=== PATIENT | female | born 1960 | race Caucasian/White ===

== ENCOUNTER 2023-09-07 15:05 | Emergency (ER) | payer BC, SELFPAY ==
[2023-09-07 15:06] VITALS: BMI 32.9
[2023-09-07 15:21] VITALS: BP 152/126
[2023-09-07] MEDS: DECADRON 10 MG PO (15:34)
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
[2023-09-07 16:00] VITALS: BP 147/110; BP 158/120
[2023-09-07 17:00] VITALS: BP 136/71; BP 145/107
== END 2023-09-07 17:21 | disposition home or self-care (01) ==
LOC: EMR 15:05
PROVIDERS: EMERGENCY PHYSICIAN Emergency Medicine; FAMILY PHYSICIAN Internal Medicine
DX: T63.461A Toxic effect of venom of wasps, accidental (unintentional), initial encounter (principal); T78.2XXA Anaphylactic shock, unspecified, initial encounter; X58.XXXA Exposure to other specified factors, initial encounter
CPT/HCPCS: 99283; 93005

== ENCOUNTER → 2024-05-14 08:00 | Outpatient (REF) | payer OTHER, SELFPAY | LOC: MRI 3T 08:00 | PROVIDERS: ATTENDING PHYSICIAN Specialist; FAMILY PHYSICIAN Student in an Organized Health Care Education/Training Program | DX: M25.562 Pain in left knee (principal) | CPT/HCPCS: 73721 ==

== ENCOUNTER 2024-10-07 20:12 | Emergency (ER) | payer OTHER, SELFPAY ==
[2024-10-07 20:14] VITALS: BP 174/97
[2024-10-07 20:39] VITALS: BMI 30.9
[2024-10-07 20:49] VITALS: BP 144/74
[2024-10-07 21:00] VITALS: BP 154/78
--- NOTE | 2024-10-07 21:03 | ED.GENMED ---
History of Present Illness
General
Chief Complaint: Insect Sting
Source: patient
Exam Limitations: none
Time Seen by Provider: 10/07/24 20:53
History of Present Illness
History of Present Illness:
See MDM
Past History
Past History
ED Past Medical History: None
ED Past Surgical History: Gynecological
Social History
Tobacco: Non-smoker
Alcohol: Occasional
Personal:
Living: with family
Employment: Retired
Phy Exam
Physical Exam
Physical Exam:
See MDM
Course
Orders/Labs/Results
Orders:
Orders
10/07/24 21:02
Dexamethasone Pf [Decadron] 10 mg PO NOW STA
Famotidine [Pepcid] 20 mg PO NOW STA
Vital Signs
Initial and Last Documented VS:
Initial Vital Signs
Temp Pulse Resp BP Pulse Ox
98.5 F 80 18 174/97 96
10/07/24 20:14 10/07/24 20:14 10/07/24 20:14 10/07/24 20:14 10/07/24 20:14
Last Documented Vital Signs
Temp Pulse Resp BP Pulse Ox
98.5 F 79 16 144/74 97
10/07/24 20:14 10/07/24 20:49 10/07/24 20:49 10/07/24 20:49 10/07/24 20:49
MDM/Problems Addressed
Differential Diagnosis Includes:
Note:
CHIEF COMPLAINT(S)
Sting by Yellow Jacket with concern of allergic reaction.
HISTORY OF PRESENT ILLNESS
The patient is a 64-year-old female who was stung by a Yellow Jacket at 7:30 PM. She reports that the sting caused immediate distress, recalling a past episode of anaphylaxis from a similar incident involving multiple stings. The current sting site
is swollen, but she denies any generalized widespread allergic reactions at this time, such as swelling of the lips or difficulty breathing. The patient did not use her EpiPen during this incident but has taken Benadryl. She describes the sting site
as swollen but not alarming regarding other systemic symptoms. Ida educated the patient about the timing of severe allergic reactions, typically occurring within 30 minutes post exposure, and reassured her about the absence of such a reaction
currently. The patient expressed an understanding of the dangers of re-exposure and the concept of biphasic allergic reactions, which can occur within 24 hours. No stinger was seen upon examination as it was confirmed to be a Yellow Jacket sting
rather than a honeybee.
PHYSICAL EXAM
General: Alert, no acute distress.
Skin: Warm, dry. No hives
Head: Normocephalic, atraumatic
Neck: Appears supple, trachea midline.
Eyes, Ears, Nose, Mouth, and Throat: Oral mucosa moist. Mild edema to left upper lip. Posterior pharynx clear
Cardiovascular: No signs of cyanosis
Respiratory: Respirations are non-labored.
Abdomen: Non-distended
Musculoskeletal: No deformities
Neurological: No focal neurological deficit observed.
Psychiatric: Cooperative, appropriate mood and affect.
PLAN
1. Administer oral Decadron (dexamethasone) to manage inflammation and prevent delayed allergic response.
2. Administer oral Pepcid (famotidine) as an H2 mukesh to adjunct treatment.
3. Observe the patient to ensure there is no progression in reaction severity before discharge.
4. Prescribe Pepsid and a course of steroids for the patient to fill the following day to ensure no delayed reaction occurs, with special instructions on when to start based on symptoms.
5. Instruct the patient on the importance of filling prescriptions and having them available should symptoms arise.
6. Educate the patient regarding possible side effects of steroids, emphasizing their short-term nature.
DIFFERENTIAL DIAGNOSIS
The Differential Diagnosis includes, in no particular order and is not limited to:
1. Anaphylaxis
2. Local allergic reaction
3. Delayed hypersensitivity reaction
4. Toxic reaction to venom
5. Angioedema
6. Systemic allergic reaction
7. Cellulitis from insect sting
8. Secondary infection at the sting site
9. Pseudolymphoma due to insect bite
10. Serum sickness-like reaction
Disposition:
SUMMARY OF ENCOUNTER
The patient, a 64-year-old female, presented to the emergency department after being stung by a Yellow Jacket. She expressed concern due to a history of anaphylaxis from previous stings but currently exhibits only localized swelling at the sting
site on her left upper lip. There is no clinical evidence of a systemic allergic reaction, anaphylaxis, or symptoms such as lip swelling or difficulty breathing. Management includes administration of oral dexamethasone and famotidine to manage
inflammation and prevent any potential delayed allergic response. The patient has been educated on the dangers of re-exposure and biphasic reactions. The plan includes observation for any progression in symptoms before discharge.
DISPOSITION
Discharge.
ASSESSMENT
Localized allergic reaction to Yellow Jacket sting; concerned about potential anaphylaxis due to history of severe allergic reactions.
EMERGENCY TREATMENTS ADMINISTERED
Administered oral dexamethasone and oral famotidine.
PLAN
1. Continue oral antihistamine therapy.
2. Ensure the patient fills prescriptions for steroids and famotidine.
3. Educate the patient on the signs of severe allergic reactions and emphasize the importance of having medications readily available.
4. Monitor for any delayed allergic reaction within the next 24 hours.
PATIENT EDUCATION AND COUNSELING
The patient was educated about the importance of recognizing signs of severe allergic reactions, instructions on the use of prescribed medications, and the significance of monitoring for biphasic reactions.
FOLLOW-UP INSTRUCTIONS
Please call the office immediately to schedule a follow-up visit if symptoms develop or worsen.
MEDICATION RECONCILIATION
1. Administered oral dexamethasone.
2. Administered oral famotidine.
3. Prescribed continuation of these medications if necessary.
MEDICAL DECISION MAKING
- Number and Complexity of Problems Addressed: Chronic conditions affecting care include the patients past medical history of significant allergic reaction to insect stings.
Differential Diagnosis includes: Anaphylaxis, Local allergic reaction, Delayed hypersensitivity reaction, Toxic reaction to venom, Angioedema, Systemic allergic reaction, Cellulitis from insect sting, Secondary infection at the sting site,
Pseudolymphoma due to insect bite, Serum sickness-like reaction.
- Risk:
Prescription medication was managed with oral dexamethasone and famotidine. The decision to discharge the patient was made as she showed no signs of systemic reaction and was stable with no indication of immediate anaphylaxis. However, due to the
history of significant allergic reactions, close follow-up and readiness to intervene if symptoms reappear were emphasized.
DIAGNOSIS
- Localized allergic reaction to insect sting (ICD-10: T63.441S)
*Pulse Oximetry
SaO2: 97
Oxygen Mode of Delivery: Room air
Patient hypoxic: no
*Critical Care Note
Total Time (30-74mins, 75-104mins- exclusive of procedures): Not Applicable
ED Attending Note
-
Portions of this chart may have been created with voice recognition software.� Occasional wrong word or��sound alike� substitutions may have occurred due to the inherent limitations of voice recognition software.
Discharge Plan
Departure
Patient Disposition: Home (Routine Discharge)
Date of Disposition: 10/07/24
Time of Disposition: 21:05
Patient with high blood pressure during this ER visit?: Yes
Discharge Problem:
Bee sting reaction
Instructions: Insect Bites and Stings (DC)
Prescriptions:
New
prednisone 20 mg tablet
40 mg PO DAILY Qty: 8 0RF
famotidine [Acid Controller] 20 mg tablet
20 mg PO BID Qty: 10 0RF
No Action
epinephrine 0.3 mg/0.3 mL auto-injector
0.3 ml IM Q5-15M PRN (Reason: anaphylaxis) Qty: 2 0RF
prednisone 20 mg tablet
40 mg PO DAILY Qty: 6 0RF
Activity Restrictions/Additional Instructions:
Please return for any worsening symptoms.
You may return at any time if you have further concerns.
Please follow up with your doctor at the first available appointment, preferably this week.
Thank you for choosing [facility].
Interventions
Interventions:
*Risk Screen - Suicide Last Done: 10/07/24 20:14
*General Assessment Last Done: 10/07/24 20:14
*Neglect/Abuse Screening Last Done: 10/07/24 20:14
*ED COVID-19 Vaccine History Last Done: 10/07/24 20:40
ED-Skin Assessment Last Done: 10/07/24 20:40
ED- Pulmonary Assessment Last Done: 10/07/24 20:40
Discharge Date and Time
Print Language: SLOVEN[place]
[2024-10-07] MEDS: PEPCID 20 MG PO (21:09)
[2024-10-07] MEDS: DECADRON 10 MG PO (21:10)
[2024-10-07 21:22] VITALS: BP 155/75
== END 2024-10-07 21:29 | disposition home or self-care (01) ==
LOC: EMR 20:12
PROVIDERS: EMERGENCY PHYSICIAN Student in an Organized Health Care Education/Training Program
DX: T63.441A Toxic effect of venom of bees, accidental (unintentional), initial encounter (principal)
CPT/HCPCS: 99283